=== PATIENT | female | born 1950 | race Caucasian/White ===

== ENCOUNTER 2019-03-02 14:11 | Observation (INO) | payer MEDICARE ==
[~2019-03-02] VITALS: Ht 162.6 cm; Wt 63.5 kg
[2019-03-02] VITALS (21 sets, daily range): BP systolic 101–142; BP diastolic 51–78
[2019-03-02] MEDS ORDERED: MORPHINE SULFATE 2 MG/ML 1ML SYG ONE (15:16)
[2019-03-02] MEDS ORDERED: SODIUM CHLORIDE 0.9% 1000ML 1,000 ML IV ONE (15:17)
[2019-03-02 15:31] LABS: BASOPHILS % (AUTO) 0.2 % (0.0-5.0); EOSINOPHILS % (AUTO) 0.2 % (0.0-8.0); HEMATOCRIT 44.1 % (36-48); MEAN CORPUSCULAR HEMOGLOBIN 32.5 pg (27.0-33.0); MEAN CORPUSCULAR HGB CONC 33.2 g/dL (32.0-36.0); MONOCYTES % (AUTO) 5.1 % (3.0-13.0); NEUTROPHILS % (AUTO) 89.5 % (40.0-77.0); NUCLEATED RED BLOOD CELLS 0.1 % (0.0-0.19); PLATELET COUNT (AUTO) 387 K/uL (130-400); RED BLOOD CELL COUNT(AUTO) 4.51 MIL/uL (4.00-5.50); RED CELL DISTRIBUTION WIDTH 13.5 % (11.0-15.5); WHITE BLOOD COUNT (AUTO) 17.1 K/uL (4.8-10.8)
[2019-03-02 15:38] LABS: CREATININE 1.3 mg/dL (0.5-1.5); POTASSIUM 3.7 mmol/L (3.5-5.1)
[2019-03-02 15:42] LABS: ALBUMIN 3.7 g/dL (3.5-5.0); BILIRUBIN,TOTAL 0.6 mg/dL (0.2-1.0); TOTAL PROTEIN, SERUM 7.4 g/dL (6.0-8.3)
[2019-03-02] MEDS ORDERED: ZOSYN 3.375GM+NS 50ML 50 ML IV ONE (16:12)
[2019-03-02] MEDS ORDERED: LIDOCAINE PF 2% 5ML ABBOJECT ONE (16:43)
[2019-03-02] MEDS ORDERED: SUCCINYLCHOLINE 200MG/10ML SYR ONE (16:43)
[2019-03-02] MEDS ORDERED: MIDAZOLAM HCL 1 MG/ML 2ML VIAL ONE (16:44)
[2019-03-02] MEDS ORDERED: PROPOFOL 10 MG/ML 20ML VIAL IV ONE (16:44)
[2019-03-02] MEDS ORDERED: ONDANSETRON HCL 4 MG/2 ML VIAL ONE (16:45)
[2019-03-02] MEDS ORDERED: METOCLOPRAMIDE 10 MG/2 ML VIAL ONE (16:46)
[2019-03-02] MEDS ORDERED: ROCURONIUM 10MG/1ML SYR 10 MG/ML ML ONE (16:46)
[2019-03-02] MEDS ORDERED: FENTANYL CITRATE PF 50 MCG/1 ML 2ML VIAL ONE (16:46)
[2019-03-02] MEDS ORDERED: MORPHINE SULFATE 2 MG/ML 1ML SYG IV PRN (17:00)
[2019-03-02] MEDS ORDERED: ACETAMINOPHEN 650 MG SUPPOSITORY RC PRN (17:00)
[2019-03-02] MEDS ORDERED: ONDANSETRON HCL 4 MG/2 ML VIAL IVP PRN (17:00)
[2019-03-02] MEDS ORDERED: HYDROCODONE/ACETAMINOPHEN 5/325 MG TAB PO PRN (17:00)
[2019-03-02] MEDS ORDERED: GLYCOPYRROLATE 1 MG/5 ML SYRINGE ONE (17:17)
[2019-03-02] MEDS ORDERED: NEOSTIGMINE 5MG/5ML SYR IV ONE (17:17)
[2019-03-02] MEDS ORDERED: BUPIVACAINE/PF 0.5% 30ML VIAL ONE (17:17)
[2019-03-02] MEDS ORDERED: KETOROLAC TROMETHAMINE 15MG/ML ONE (18:22)
--- NOTE | 2019-03-02 19:30 | NUR ---
Patient received from PACU: Patient came in via bed awake alert accompanied by Gas, RN and OR Tech. with IV of LR regulated at 125 ml/hour. Patient and oriented to the room, call light given. Plan of care discussed with patient verbalizes understanding.
[2019-03-02] MEDS ORDERED: LACTATED RINGERS 1000ML 1,000 ML IV SCH (20:00)
[2019-03-02] MEDS ORDERED: POTASSIUM CHLORIDE 20MEQ/100ML 100 ML IV PRN (20:00)
[2019-03-02] MEDS ORDERED: POTASSIUM CHLORIDE 10% ELIXIR 20 MEQ/15 ML UDCUP PO PRN (20:00)
[2019-03-02] MEDS ORDERED: POTASSIUM CHLORIDE 20 MEQ ERTAB PO PRN (20:00)
[2019-03-02] MEDS ORDERED: LIDOCAINE HCL-MPF 1% 2ML VIAL IV PRN (20:00)
--- NOTE | 2019-03-02 20:00 | NUR ---
Beverly COLON [employer] QUALITY ENGINEER at bedside; Nurse Practitioner Hospitalist assistant front office manager came at patient bedside checked patient and reviewed plan of care. No order given.
[2019-03-02] MEDS ORDERED: KETOROLAC TROMETHAMINE 15MG/ML IV PRN (20:45)
[2019-03-02] MEDS: ZOSYN 3.375GM+NS 50ML 50 ML IV SCH (21:35)
[2019-03-02] MEDS ORDERED: TOPI50TA24 PO (21:38)
--- NOTE | 2019-03-02 21:38 | NUR ---
Patient: Patient took her home medication the Topiramate 50 mg 1 tab p.o.
[2019-03-02] MEDS: FAMOTIDINE/PF 20 MG/2 ML VIAL IV SCH (21:43)
--- NOTE | 2019-03-02 22:15 | NUR ---
PATIENT ASSISTED TO THE BATHROOM : Patient up to void, SCD's off she was assisted to the bathroom, denies any pain or dizziness. Clair care done herself. She ambulated in the hallway for 10 minutes accompanied by . She tolerated it well. Patient claimed, "Can I be off from the Compression device for me to be easier to go to the bathroom. " SCD off.
[2019-03-03] MEDS: D5W-1/2 NS/20MEQ KCL 1,000 ML IV SCH ×2 (00:31→13:08)
[2019-03-03 00:38] VITALS: BP 108/72
[2019-03-03 04:35] VITALS: BP 92/57
[2019-03-03 04:38] LABS: BASOPHILS % (AUTO) 0.2 % (0.0-5.0); HEMATOCRIT 35.8 % (36-48); MEAN CORPUSCULAR HEMOGLOBIN 32.8 pg (27.0-33.0); MEAN CORPUSCULAR HGB CONC 33.3 g/dL (32.0-36.0); MEAN CORPUSCULAR VOLUME 98.4 fL (79-99); MONOCYTES % (AUTO) 3.8 % (3.0-13.0); PLATELET COUNT (AUTO) 290 K/uL (130-400); RED BLOOD CELL COUNT(AUTO) 3.63 MIL/uL (4.00-5.50); RED CELL DISTRIBUTION WIDTH 13.6 % (11.0-15.5); WHITE BLOOD COUNT (AUTO) 18.5 K/uL (4.8-10.8)
[2019-03-03] MEDS: ZOSYN 3.375GM+NS 50ML 50 ML IV SCH ×2 (04:41→12:45)
[2019-03-03 04:55] LABS: ALBUMIN 2.4 g/dL (3.5-5.0); BILIRUBIN,TOTAL 0.4 mg/dL (0.2-1.0); TOTAL PROTEIN, SERUM 5.5 g/dL (6.0-8.3)
[2019-03-03 06:22] LABS: APPEARANCE,URINE Clear (CLEAR); BILIRUBIN,URINE Negative (NEGATIVE); COLOR,URINE Yellow (YELLOW); GLUCOSE, URINE (UA) Negative (NEGATIVE); KETONES,URINE Negative (NEGATIVE); LEUKOCYTE ESTERASE ,URINE Trace (NEGATIVE); NITRATE,URINE Negative (NEGATIVE); OCCULT BLOOD,URINE Negative (NEGATIVE); PROTEIN,URINE Negative (NEGATIVE)
[2019-03-03] MEDS: ACETAMINOPHEN 325 MG TAB PO PRN ×2 (06:28→11:57)
--- NOTE | 2019-03-03 06:31 | NUR ---
Patient: Patient noted coughing she claimed her throat is sore requested medication given warm water and Tylenol 650 mg p.o. for throat soreness. We will inform Doctor this morning.
[2019-03-03 06:54] LABS: BACTERIA,URINE Rare /HPF (None Seen); RBC,URINE 0-1 /HPF (0-1); SQUAMOUS EPITHELIAL CELL,UR Rare /HPF (0-2); WBC,URINE 0-1 /HPF (0-1)
[2019-03-03 07:55] VITALS: BP 101/61
--- NOTE | 2019-03-03 08:30 | NUR ---
DR. BURRIS CALLED AND UPDATE GIVEN ON PATIENT STATUS. INDICATED WOULD BE BY LATER TO CHECK ON PATIENT. QUESTIONED WHY PATIENT WAS PLACED ON FLOOR. DUE TO HIGH WBC WANTS TO MAKE PT HAS NEXT DOSE OF ZOSYN AND POSSIBLY DC PT THIS PM.
[2019-03-03] MEDS: FAMOTIDINE/PF 20 MG/2 ML VIAL IV SCH (08:35)
--- NOTE | 2019-03-03 09:15 | NUR ---
DR. GOLDBERG IN TO SEE PATIENT AND INFORMED OF DR. BURRIS MIGHT DISCHARGE PT THIS PM. INFORMED OF STAINED DRESSINGS AND INDICATED TO CHANGE DRESSINGS.
--- NOTE | 2019-03-03 10:00 | NUR ---
PATIENT UP AMBULATING IN HALLWAY WITH SPOUSE. PATIENT DENIES ANY PROBLEMS ON AMBULATION. WALKED SEVERAL TIMES IN HALLWAY.
--- NOTE | 2019-03-03 10:15 | NUR ---
PATIENT BACK IN BED AND DRESSING CHANGE DONE. NO ACTIVE BLEEDING NOTED TO SITES X 3. DELORIS INTACT AND NEW GAUZE DRESSINGS WITH TEGADERM RE-APPLIED. SITES CLEANED WITH ALCOHOL TO REMOVE BLOOD STAIN, AND NOTED SOME BRUISINGS TO INCISIONAL SITES.
[2019-03-03 12:00] VITALS: BP 111/67
--- NOTE | 2019-03-03 12:30 | NUR ---
DR. BURRIS ROUNDED AND WAS MADE AWARE OF DRESSING CHANGES DONE PER DR. GOLDBERG'S REQUEST. ORDER GIVEN FOR DISCHARGE THIS P.M. IF OKAY WITH HOSPITALIST, DR. GOLDBERG. SCRIPT LEFT FOR PATIENT IF DISCHARGED.
--- NOTE | 2019-03-03 14:30 | NUR ---
DR. JOSE GOLDBERG ROUNDED AND INDICATE PATIENT COULD BE DISCHARGED AND FOLLOW UP WITH HER PCP IN 3-5 DAYS. PATIENT IS STABLE AND CAN FOLLOW UP WITH DR. BURRIS IN ONE WEEK.
[2019-03-03 16:00] VITALS: BP 102/72
--- NOTE | 2019-03-03 18:00 | NUR ---
DISCHARGE INSTRUCTIONS GIVE AND IV REMOVED. IV SITE WNL. SCRIPT FOR HOME PAIN MANAGEMENT AND ANTIBIOTICS GIVEN AND INSTRUCTED ON DOSAGE AND FREQUENCY. VERBALIZED UNDERSTANDING INSTRUCTIONS GIVEN.
--- NOTE | 2019-03-03 18:45 | NUR ---
PATIENT WAS TAKEN VIA W/C TO FAMILY VEHICLE AND WAS DISCHARGE TO SPOUSE DR. BROWNE IN STABLE CONDITION.
[2019-03-03] MEDS ORDERED: TOPIRAMATE 25 MG TABLET PO SCH (21:00)
== END 2019-03-03 18:45 | disposition home or self-care (01) ==
LOC: EDH 14:11 → EDHIP 16:22 → WSH 19:56
PROVIDERS: ADMIT Specialist; ATTEND Specialist
DX: K35.891 Other acute appendicitis without perforation, with gangrene (principal); K57.30 Diverticulosis of large intestine without perforation or abscess without bleeding; D72.828 Other elevated white blood cell count; G43.809 Other migraine, not intractable, without status migrainosus; Z79.899 Other long term (current) drug therapy
CPT/HCPCS: 36415 ×2; 44970; 74176; 80053 ×2; 81001; 82150; 83605; 83690; 84145; 85025 ×2; 93005; 96365; 96366 ×2; 96375; 96376; 99284; A4215; A4600; A4649; A6206; A6207; C1769 ×4; G0378 ×25; J0330; J1885; J2001; J2250; J2405; J2543 ×4; J2704; J2710; J2765; J3010; J3480 ×2; J3490 ×4; J7030 ×2